=== PATIENT | male | born 1980 | race African-American/Black ===

== ENCOUNTER 2021-10-09 15:57 | Emergency (ER) | payer MEDICAID ==
[~2021-10-09] VITALS: Ht 167.6 cm; Wt 81.6 kg
--- NOTE | 2021-10-09 16:16 | NUR ---
PT [id number] FOR NOTED SEIZURE EPISODE X 2 PER EMT "2 MINUTES EACH, 6 MINUTES APART WITH NO TRAUMA AT FACILITY" VERSED IM GIVEN POT RELINER. BG 100. POT RELINER LFA #20G S/L PATENT AND INTACT. PT LETHARGIC AT THIS TIME. A/OX1 BASELINE; NONVERBAL. PT TOLERATING R/A WELL AT 98%. SAFETY SEIZURE PROTOCOL IN PLACE. CONNECTED PT TO POX AND MONITOR.
--- NOTE | 2021-10-09 16:18 | NUR ---
SENDY FRANCO AT THE BEDSIDE
[2021-10-09] MEDS ORDERED: LEVETIRACETAM (500MG) 1,000 MG in IV NS 0.9% 100 ML IV ONE (16:30)
[2021-10-09] MEDS ORDERED: IV NS 0.9% 1,000 ML BAG IV ONE (16:30)
--- NOTE | 2021-10-09 16:33 | NUR ---
FRITZ BS 75; [employer]UC[employer] S[employer] LANGUAGE INTERPRETER AWARE.
--- NOTE | 2021-10-09 16:47 | NUR ---
PRIVATE PILOT AT PT'S BEDSIDE
[2021-10-09 17:10] LABS: BASOPHILS % (AUTO) 0.3 % (0.0-2.0); EOSINOPHILS % (AUTO) 0.5 % (0.0-6.0); HEMATOCRIT 44 % (39-51); LYMPHOCYTES # (AUTO) 1.5 K/uL (0.8-4.8); LYMPHOCYTES % (AUTO) 14.8 % (20.0-44.0); MEAN CORPUSCULAR HGB CONC 34 g/dl (31.0-36.0); MEAN CORPUSCULAR VOLUME 85 fL (80-96); MONOCYTES # (AUTO) 0.4 K/uL (0.1-1.30); MONOCYTES % (AUTO) 3.7 % (2.0-12.0); NEUTROPHILS % (AUTO) 80.7 % (43.0-81.0); PLATELET COUNT (AUTO) 265 K/uL (150-450); RED BLOOD CELL COUNT(AUTO) 5.14 MIL/uL (4.5-6.0); WHITE BLOOD COUNT (AUTO) 9.9 K/uL (4.3-11.0)
[2021-10-09 17:46] LABS: CALCIUM, SERUM 8.4 mg/dL (8.5-10.1); POTASSIUM 3.7 mmol/L (3.5-5.1)
[2021-10-09 18:02] LABS: VALPROIC ACID 88 ug/mL (50-100)
--- NOTE | 2021-10-09 18:10 | NUR ---
URINE COLLECTED AND SENT TO THE LAB
[2021-10-09] MEDS ORDERED: LEVE750T10 PO (18:50)
[2021-10-09] MEDS ORDERED: LEVE500T20 PO (18:50)
--- NOTE | 2021-10-09 18:58 | NUR ---
Missy clemons in [facility] - 10/09/21 at 1858 by JACQUE COVID ANTIGEN SWAB DONE AND SENT TO THE LAB
[2021-10-09 19:04] LABS: BILIRUBIN,URINE NEGATIVE (NEGATIVE); COLOR,URINE YELLOW (YELLOW); LEUKOCYTE ESTERASE ,URINE NEGATIVE (NEGATIVE); NITRITE, URINE NEGATIVE (NEGATIVE); PH,URINE 7.5 (5.0-8.0); PROTEIN,URINE NEGATIVE (NEGATIVE); UGLUCOSE NEGATIVE (NEGATIVE); UROBILINOGEN,URINE 0.2 EU/dL (0.2)
[2021-10-09 19:06] LABS: BACTERIA,URINE None seen /HPF (None Seen); RBC,URINE 0-2 /HPF (0-2); URINE AMORPHOUS PHOSPHATES Moderate /HPF (None Seen); WBC,URINE 0-2 /HPF (0-3)
[2021-10-09 19:08] LABS: SQUAMOUS EPITHELIAL CELL,UR 0-2 /HPF (None Seen)
[2021-10-09 19:19] VITALS: BP 123/73
--- NOTE | 2021-10-09 19:19 | NUR ---
IV removed. Catheter intact and site benign. Pressure and 4x4 applied to site. No bleeding noted.Patient discharged to home in stable condition. Written and verbal after care instructions given. Patient verbalizes understanding of instruction. The patient is picked up y caregiver via auto.
== END 2021-10-09 19:20 | disposition home or self-care (01) ==
LOC: ER 16:00
DX: G40.909 Epilepsy, unspecified, not intractable, without status epilepticus (principal); Z79.899 Other long term (current) drug therapy
CPT/HCPCS: 36415; 80048; 80164; 80177; 81001; 82962; 84484; 85025; 93005; 96361; 96365; 99284; J1953; J7030 ×3